=== PATIENT | male | born 1950 | race Caucasian/White ===

== ENCOUNTER → 2018-07-20 10:45 | Outpatient (CLI) | payer MEDICARE, OTHER, SELFPAY ==
[2018-07-20 12:28] LABS: Absolute Lymphocyte Count 1.33 X10^3/ul (0.83-4.51); Basophil# 0.01 X10^3/uL; Basophil% 0.2 % (0-1); Eosinophil# 0.24 X10^3/uL; Eosinophils% 3.9 % (0-5); Hematocrit 41.7 % (40-54); Hemoglobin 14.7 g/dl (13.0-16.5); Lymphocyte # 1.33 X10^3/ul (4.0); Lymphocyte % 21.6 % (19-41); Mean Corp Hgb Conc 35.3 g/gl (32-36); Mean Corpuscular Hgb 31.1 pg (27.0-32.0); Mean Corpuscular Volume 88.3 fL (80-94); Mean Platelet Vol. 11.6 fl (6.2-12.0); Monocyte# 0.54 X10^3/uL; Monocyte% 8.8 % (0-10); Neutrophil # 4.02 X10^3/uL (2.7-7.7); Neutrophil % 65.3 % (47-70); POSITIVE COUNT NO; POSITIVE DIFFERENTIAL NO; POSITIVE MORPHOLOGY NO; Platelet Count 191 K/mm3 (150-450); RBC Distribution Width CV 12.6 % (11.6-14.6); RBC Distribution Width SD 40.4 fl (35.1-43.9); Red Blood Count 4.72 M/mm3 (4.6-6.2); White Blood Count 6.2 K/mm3 (4.4-11.0)
[2018-07-20 12:41] LABS: ALB/GLOB Ratio 1.1 RATIO (0.9-2.4); AST(SGOT) 22 U/L (15-37); Alanine Aminotransfer ALT/SGPT 27 U/L (16-61); Albumin, Serum 3.9 g/dL (3.2-5.0); Alkaline Phosphatase 78 U/L (45-117); Anion Gap 7 (5-15); BUN 23 mg/dL (7-18); Calcium,Total 8.9 mg/dL (8.5-10.1); Chloride 106 mmol/L (98-107); Cholesterol 194 mg/dL (200); Creatinine, Serum 1.53 mg/dL (0.70-1.30); EST Glomerular Filtration Rate 48 mL/min (>60); Est Glom Filt Rate - Afr Amer 58 mL/min (>60); Globulin 3.7 g/dL (2.2-4.2); Glucose 90 mg/dL (74-106); High Density Lipoprotein 59 mg/dL; PSA,Total - Annual Screen 3.79 ng/mL (0.00-4.00); Potassium 4.1 mmol/L (3.5-5.1); Protein, Total 7.6 g/dL (6.4-8.2); Sodium Level 140 mmol/L (136-145); Triglycerides 64 mg/dL; Very Low Density Lipoprotein 13 mg/dL (5-40)
== END ==
PROVIDERS: Family Provider Family Medicine; PCP Family Medicine; Visit Provider Family Medicine
DX: I10 Essential (primary) hypertension (principal); Z12.5 Encounter for screening for malignant neoplasm of prostate; Z00.00 Encounter for general adult medical examination without abnormal findings
CPT/HCPCS: 36415; 80053; 80061; 84153; 85025; G0103

== ENCOUNTER → 2019-08-28 09:01 | Outpatient (CLI) | payer MEDICARE, OTHER, SELFPAY ==
[2019-08-28 10:10] LABS: Absolute Lymphocyte Count 2.03 X10^3/uL (0.83-4.51); Absolute Neutrophil Count 4.9 X10^3/uL (2.0-7.7); Basophil# 0.04 X10^3/uL; Basophil% 0.5 % (0-1); Eosinophil# 0.29 X10^3/uL; Eosinophils% 3.6 % (0-5); Hematocrit 44.6 % (40-54); Hemoglobin 15.3 g/dL (13.0-16.5); Lymphocyte # 2.03 X10^3/ul (4.0); Lymphocyte % 25.1 % (19-41); Mean Corp Hgb Conc 34.3 g/dL (32-36); Mean Corpuscular Hgb 30.8 pg (27.0-32.0); Mean Corpuscular Volume 89.7 fL (80-94); Mean Platelet Vol. 10.6 fl (6.2-12.0); Monocyte% 9.9 % (0-10); NRBC Flagged by Analyzer 0 % (0-5); Neutrophil % 60.7 % (47-70); Platelet Count 208 K/mm3 (150-450); RBC Distribution Width SD 39.3 fl (35.1-43.9); Red Blood Count 4.97 M/mm3 (4.6-6.2); White Blood Count 8.1 K/mm3 (4.4-11.0)
[2019-08-28 10:25] LABS: ALB/GLOB Ratio 1.1 RATIO (0.9-2.4); AST(SGOT) 21 U/L (15-37); Alanine Aminotransfer ALT/SGPT 27 U/L (16-61); Albumin, Serum 3.8 g/dL (3.2-5.0); Alkaline Phosphatase 83 U/L (45-117); Anion Gap 4 (5-15); BUN 24 mg/dL (7-18); BUN/Creat Ratio 14.1 RATIO (10-20); Calcium,Total 8.9 mg/dL (8.5-10.1); Chloride 109 mmol/L (98-107); EST Glomerular Filtration Rate 42 mL/min (>60); Est Glom Filt Rate - Afr Amer 51 mL/min (>60); Globulin 3.6 g/dL (2.2-4.2); Glucose 101 mg/dL (74-106); PSA,Total - Annual Screen 4.34 ng/mL (0.00-4.00); Protein, Total 7.4 g/dL (6.4-8.2); Sodium Level 141 mmol/L (136-145)
== END ==
PROVIDERS: Family Provider Family Medicine; PCP Family Medicine; Referring Provider Family Medicine; Visit Provider Family Medicine
DX: Z00.00 Encounter for general adult medical examination without abnormal findings (principal); I12.9 Hypertensive chronic kidney disease with stage 1 through stage 4 chronic kidney disease, or unspecified chronic kidney disease; N18.3 Chronic kidney disease, stage 3 (moderate); Z12.5 Encounter for screening for malignant neoplasm of prostate
CPT/HCPCS: 36415; 80053; 84153; 85025; G0103

== ENCOUNTER → 2020-11-13 15:35 | Outpatient (CLI) | payer MEDICARE, OTHER, SELFPAY ==
[2020-11-13 17:24] LABS: Absolute Lymphocyte Count 1.56 X10^3/uL (0.83-4.51); Absolute Neutrophil Count 4.7 X10^3/uL (2.0-7.7); Basophil# 0.03 X10^3/uL; Basophil% 0.4 % (0-1); Eosinophil# 0.31 X10^3/uL; Eosinophils% 4.3 % (0-5); Hematocrit 42.8 % (40-54); Hemoglobin 14.2 g/dL (13.0-16.5); Lymphocyte # 1.56 X10^3/ul (4.0); Lymphocyte % 21.6 % (19-41); Mean Corp Hgb Conc 33.2 g/dL (32-36); Mean Corpuscular Hgb 29.8 pg (27.0-32.0); Mean Corpuscular Volume 89.7 fL (80-94); Mean Platelet Vol. 11.8 fl (6.2-12.0); Monocyte# 0.61 X10^3/uL; Monocyte% 8.4 % (0-10); NRBC Flagged by Analyzer 0 % (0-5); Platelet Count 180 K/mm3 (150-450); RBC Distribution Width CV 12.9 % (11.6-14.6); RBC Distribution Width SD 41.8 fl (35.1-43.9); Red Blood Count 4.77 M/mm3 (4.6-6.2); White Blood Count 7.2 K/mm3 (4.4-11.0)
[2020-11-13 18:02] LABS: Anion Gap 6 (5-15); BUN 25 mg/dL (7-18); BUN/Creat Ratio 16.7 RATIO (10-20); Calcium,Total 8.9 mg/dL (8.5-10.1); Chloride 108 mmol/L (98-107); EST Glomerular Filtration Rate 49 mL/min (>60); Est Glom Filt Rate - Afr Amer 59 mL/min (>60); Glucose 87 mg/dL (74-106); PSA,Total - Annual Screen 6.66 ng/mL (0.00-4.00); Sodium Level 139 mmol/L (136-145)
== END ==
PROVIDERS: PCP Family Medicine; Visit Provider Family Medicine
DX: I12.9 Hypertensive chronic kidney disease with stage 1 through stage 4 chronic kidney disease, or unspecified chronic kidney disease (principal); N18.30 Chronic kidney disease, stage 3 unspecified; R97.20 Elevated prostate specific antigen [PSA]
CPT/HCPCS: 36415; 80048; 84153; 85025; G0103

== ENCOUNTER → 2020-12-08 | Outpatient (CLI) | payer MEDICARE, OTHER, SELFPAY ==
[2020-12-08 10:55] LABS: Bacteria 0 SEEN /hpf (None Seen); Mucous, Urine 0 SEEN /hpf (<or=2+)
[2020-12-08 11:01] LABS: Color, Urine Yellow (Yellow); Glucose, Dipstick Normal (Normal); Ketone-Dipstick Negative (Negative); Leukocyte Esterase-Dipstick 25 /ul (Negative); Nitrite-Dipstick Negative (Negative); Occult Blood-Urine 250 /ul (Negative); Protein-Dipstick 30 mg/dl (Negative); Specific Gravity, Urine 1.015 (1.002-1.030); Urine Bilirubin Dipstick Negative (Negative); Urine Clarity Sl. Cloudy (Clear); Urine Urobilinogen Normal (Normal)
[2020-12-08 11:07] LABS: Red Blood Cells-Urine 25-50 SEEN /hpf (0-5); Squamous Epithelial Cells - UA 0-5 SEEN /hpf (0-5); White Blood Cells 0-5 SEEN /hpf (0-5)
== END | disposition home or self-care (01) ==
LOC: LABSPEC 10:50
PROVIDERS: PCP Family Medicine; Referring Provider Nurse Practitioner Adult Health; Visit Provider Nurse Practitioner Adult Health
DX: R31.29 Other microscopic hematuria (principal)
CPT/HCPCS: 81001

== ENCOUNTER → 2020-12-14 13:39 | Outpatient (CLI) | payer MEDICARE, OTHER, SELFPAY ==
--- NOTE | 2020-12-14 13:43 | CT_ITS ---
STUDY: CT ABDOMEN AND PELVIS WITH AND WITHOUT CONTRAST REASON FOR EXAM: Male, 70 years old. BENIGN NEOPLASM OF ADRENAL GLAND, HERNIA REPAIR RADIATION DOSAGE (If Supplied By Facility): CTDIvol = ( 15.74 ) mGy, DLP = ( 1933.36 ) mGycm TECHNIQUE: Transaxial images were obtained from the dome of the diaphragm to the symphysis pubis without oral contrast. IV 100mL Isovue-370 was administered. Sagittal and coronal images were reconstructed. Individualized dose optimization techniques were used for this CT. COMPARISON: None. FINDINGS: The visualized lung bases are unremarkable. The visualized portions of the heart are within normal limits. There is a 2.3 cm x 2.2 cm cyst in the left lobe of the thyroid. Normal gallbladder and extrahepatic biliary system. Normal spleen. Normal pancreas. Normal bilateral adrenal glands. There is mild cortical atrophy of the right kidney, consistent with chronic medical renal disease. There is a 5.2 mm nonobstructive calculus in the lower pole calyx of the right kidney. There is a 1.3 cm cyst in the posterior inferior aspect of the right kidney. There is hypertrophy of the left kidney. There is a 6 mm nonobstructive calculus in the mid lower aspect of the left kidney. There is a 3.3 cm x 1.9 cm parapelvic cyst in the midportion of left kidney. There is also evidence of a 2.2 cm cyst in the midportion of Normal visualized stomach. Normal small intestine. There are multiple colonic diverticula consistent with diverticulosis. The appendix is visualized and appears normal. Normal abdominal aorta. Normal inferior vena cava. There is borderline retroperitoneal lymphadenopathy with enlarged nodes no greater than 10mm in the short axis diameter. There is a 3.1 cm x 1.7 cm bladder diverticulum along the left side of the bladder. There is evidence of bladder trabeculation of the bladder base. There is enlargement of the prostate gland. It measures 4.9 cm x 5.6 cm. Dense calcifications are seen in its right lateral aspect. There is indentation at the bladder base. Normal abdominal wall. There are degenerative changes of the visualized lumbar spine. CT/CT Abd/Pelvis W/WO Contrast IMPRESSION: Mild atrophy of the right kidney. Small bilateral intrarenal cysts. Nonobstructive bilateral intrarenal calculi. Prostatic enlargement with the heterogeneous appearance and calcification and indentation of the bladder base. Left bladder diverticulum. Electronically Signed: Joe Gimenez MD at 15:00 EST , Service support ,
== END ==
PROVIDERS: PCP Family Medicine; Referring Provider Nurse Practitioner Adult Health; Visit Provider Nurse Practitioner Adult Health
DX: D35.00 Benign neoplasm of unspecified adrenal gland (principal)
CPT/HCPCS: 74178; Q9967

== ENCOUNTER 2021-01-08 08:10 | Day surgery (SDC) | payer MEDICARE, OTHER, SELFPAY ==
--- NOTE | 2021-01-04 12:23 | EKG12_ITS ---
Test Reason : PRE OP Blood Pressure : / mmHG Vent. Rate : 074 BPM Atrial Rate : 074 BPM P-R Int : 200 ms QRS Dur : 082 ms QT Int : 372 ms P-R-T Axes : 058 036 000 degrees QTc Int : 412 ms Sinus rhythm with occasional Premature ventricular complexes and Premature atrial complexes Otherwise normal ECG Confirmed by SALVADOR BARBOUR, SWAPNA ([id number]), medical editor CHANO GARNER ([id number]) on 01/05/2021 8:14:40 AM Referred By: Bradley Ashraf Confirmed By:SWAPNA FRANCO MD
[2021-01-04 12:53] LABS: Hematocrit 42.9 % (40-54); Hemoglobin 14.5 g/dL (13.0-16.5); Mean Corp Hgb Conc 33.8 g/dL (32-36); Mean Corpuscular Hgb 30.3 pg (27.0-32.0); Mean Corpuscular Volume 89.7 fL (80-94); Mean Platelet Vol. 10.4 fl (6.2-12.0); Platelet Count 220 K/mm3 (150-450); RBC Distribution Width CV 13.1 % (11.6-14.6); RBC Distribution Width SD 43.6 fl (35.1-43.9); Red Blood Count 4.78 M/mm3 (4.6-6.2); White Blood Count 8.4 K/mm3 (4.4-11.0)
[2021-01-08] VITALS (11 sets, daily range): BP systolic 148–178; BP diastolic 86–102; PULSE 53–75; RESP 16–18; TEMP 36.2–37.2; O2SAT 94–99; BMI 29.0
--- NOTE | 2021-01-08 | IMM_PTH ---
PATIENT: ANATOLY SUAREZ LOC: [facility] [place] U#:[id number] AGE/SX: 70/M ROOM: RE01/08/[address]: Dr. Bradley Ashraf MD : 1950 BED: DIS: 01/09/2021 SPEC #: [id number] RECD: 01/11/21 14:32 STATUS: ISIDRA REQ #: [id number] SUSIE: 01/08/21 00:[address]: Bradley Ashraf DEPT: IMMUNOHISTOCHEMISTRY RECD BY: Anusha Theodore ENTERED: 01/11/21 14:34 SP TYPE: IMMUNO OTHR DR: Dr. Amelia Cabrera MD Tissues: A - PROSTATE BIOPSY C - PROSTATE LEFT Procedures: 34BE12 (add) P40 (add) 34BE12 (initial) PHYSICIAN & INSTITUTION [place] [phone] SPECIMEN INFORMATION: Tissue Source: A - Prostate chips, C - Left prostate, punch biopsy Clinical Info: BPH with obstruction/lower urinary tract symptoms, elevated PSA, bladder stone Specimen Number: [id number] A2, A4, A6, A9, C CPT code: 36472 x2, 97133 x8 METHODOLOGY: Deparaffinized sections of prefer/formalin-fixed tissue or PAP/DQ stained slides are incubated with monoclonal/polyclonal antibodies/oligonucleotide probes. Localization is made via biotin free immunoperoxidase method. Appropriate controls are performed and reacted as expected. Results on target cell population are indicated in the following table: RESULTS: ANTIBODY / CLONE RESULT Block A2 34BE12 (34BE12) negative P40 (BC28) negative Block A4 34BE12 (34BE12) negative P40 (BC28) negative Block A6 34BE12 (34BE12) negative P40 (BC28) negative Block A9 34BE12 (34BE12) negative P40 (BC28) negative Block C 34BE12 (34BE12) negative P40 (BC28) negative These tests were developed and their performance characteristics determined by [facility]. They may not have been cleared or approved by the U.S. Food and Drug Administration. The FDA has determined that such clearance or approval is not necessary. The above immunohistochemical/dualISH markers are ordered and reviewed by the Pathologist. INTERPRETATION: A. Prostate chips, transurethral resection: Adenocarcinoma. C. Left prostate, punch biopsy: Adenocarcinoma. AM:joan 01/13/2021
[2021-01-08] MEDS: Lactated Ringers 1,000 ML 100 ML IV ×2 (08:55→10:30)
--- NOTE | 2021-01-08 09:46 | PCM.HP.STD ---
Problem List (1) Bladder stone Status: Acute (2) BPH with obstruction/lower urinary tract symptoms Status: Acute (3) Elevated PSA Status: Acute History of Present Illness Date of Admission: 01/08/21 Chief Complaint: BPH with obstruction bladder stone and elevated PSA The patient is a 70 year old male who presents with a large bladder stone, BPH with obstruction and elevated PSA we plan to address these issues today. Past Medical History Allergies Penicillins [PCN] Allergy (Verified 01/08/21 08:28) Rash Home Medications: Ambulatory Orders Medication Instructions Recorded Amlodipine [Norvasc] 10 mg PO QHS 01/01/21 Multivitamin 1 ea PO DAILY 01/01/21 Surgical History: no surgical history Smoking Status: Former smoker Review of Systems Constitutional: Denies: Chills, Fever, Weight Change HEENT: Denies: Head Aches, Sinus Congestion, Sinus Drainage Cardiovascular: Denies: Chest Pain, Palpitations Respiratory: Denies: Cough, Shortness of breath at rest, Sputum production Gastrointestinal: Denies: Abdominal Pain, Nausea, Vomiting Genitourinary: Denies: Dysuria Musculoskeletal: Denies: Joint Pain, Joint Tenderness Skin: Denies: Rash, Wounds Neurological: Denies: Numbness, Tingling, Focal weakness Psychiatric: Denies: Anxiety, Depression, Homicidal Ideations, Suicidal Ideations Hematologic/ Lymphatic: Denies: Easy Bruising, Easy Bleeding VTE Information - Inpt Only VTE Present on Admission: No - Physical Exam Vitals/I&O's: Vital Signs Temp Pulse Resp BP Pulse Ox 98.6 F 62 16 157/91 H 98 01/08/21 08:49 01/08/21 08:49 01/08/21 08:49 01/08/21 08:49 01/08/21 08:49 Oxygen Delivery Method Room Air Weight: 86.5 kg Body Mass Index (BMI) 29.0 General: Alert, Oriented x3, Cooperative HEENT: Atraumatic, PERRLA, EOMI, Normocephalic Neck: Supple, No JVD, Negative Carotid Bruits Lungs: Clear to auscultation, Normal air movement Cardiovascular: Regular rate, No murmurs Abdomen: Bowel Sounds Present, Soft, Non Tender Extremities: No edema, Capillary Refill Less than 3 Seconds Skin: No rashes, No breakdown Musculoskeletal: No Tenderness to Palpation of Joints or Extremities Neurological: Cranial nerves II-XII grossly intact Psych/Mental Status: Normal Affect, Appropriate Microbiology Past 72 Hours 01/07/21 11:30 Interface Orders SARS-CoV-2 Antigen (Rapid) - Final Current Medications Cefazolin Sodium 2 gm/ Sodium (Chloride) 110 mls @ 150 mls/hr IV PREOP ONE Stop: 01/08/21 10:43 Lactated Ringer's () 1,000 mls @ 100 mls/hr IV .Q10H WOLF Last Admin: 01/08/21 08:55 Dose: 100 mls/hr Documented by: Assessment/Plan All Active Problems Bladder stone (Acute) BPH with obstruction/lower urinary tract symptoms (Acute) Elevated PSA (Acute) Plan to proceed with laser bladder stone, transurethral section of the prostate, and then finger guided prostate biopsy.
--- NOTE | 2021-01-08 09:52 | DCINST_ITS ---
Discharge Diet: Light diet - advance as tolerated Discharge Activity: Return to Normal Activity Call your doctor if your incision/area has: Sudden Increased Bleeding Call your doctor if you observe: Fever of 101 or Higher Suture Line Care: Avoid Pulling/Pushing, Avoid Pinching/Bending Allergies/Adverse Reactions: Allergies Penicillins [PCN] Allergy (Verified 01/08/21 08:28) Rash Medications to take at Discharge Amlodipine [Norvasc] 10 mg PO QHS 01/01/21 Multivitamin 1 ea PO DAILY 01/01/21 Ciprofloxacin [Cipro] 500 mg PO BID #6 tab 01/08/21 Hydrocodone Bitart/Apap 5-325 [[place] 5MG-325MG] 1 tablet PO Q4H PRN PRN 7 Days #10 tablet 01/08/21 The following prescriptions were given: Ciprofloxacin [Cipro] 500 mg PO BID #6 tab Transmission Status: Pending to [facility] Hydrocodone Bitart/Apap 5-325 [[place] 5MG-325MG] 1 tablet PO Q4H PRN PRN 7 Days #10 tablet PRN Reason: Pain Transmission Status: Sent to [facility] Primary Care Physician: Amelia Cabrera MD [Primary Care Provider] - Test Results: Test results from this visit will be discussed in further detail at your follow- up appointment, if applicable. Please Follow Up With: Bradley Ashraf MD - [phone] When: in 2 weeks, please call to make an appointment.
[2021-01-08] MEDS: Cefazolin 2 GM in 0.9% Normal Saline 100 ML IV (10:04)
--- NOTE | 2021-01-08 10:10 | PROS_PTH ---
PATIENT: ANATOLY SUAREZ LOC: [facility] [place] U#:[id number] AGE/SX: 70/M ROOM: RE01/08/[address]: Dr. Bradley Ashraf MD : 1950 BED: DIS: 01/09/2021 SPEC #: [id number] RECD: 01/08/21 12:56 STATUS: ISIDRA REMarly #: [id number] SUSIE: 01/08/21 10:[address]: Bradley Ashraf DEPT: SURGICAL PATHOLOGY RECD BY: Sophie Kearns ENTERED: 01/08/21 13:18 SP TYPE: TURP OTHR DR: Dr. Amelia Cabrera MD Tissues: A - Prostate, NOS B - PROSTATE BIOPSY C - PROSTATE BIOPSY Procedures: Surgery Specimen Level IV HEADER OPERATION: Cysto, TUR prostate, Olympus/transrectal biopsy prostate PRE-OP DIAGNOSIS: Bladder stone, BPH with obstruction/lower urinary tract symptoms, elevated PSA TISSUE SUBMITTED: A - Bladder stone and prostate chips, B - Biopsy punch of prostate - right, C - Biopsy punch of prostate - left MICROSCOPIC DIAGNOSIS A. Prostate, transurethral resection: Adenocarcinoma. Unremarkable calculi. See cancer checklist below. B. Right prostate, core biopsy: Chronic inflammation and glandular atrophy. C. Left prostate, core biopsy: Adenocarcinoma. Edwin grade: 6 (3+3) Cores involved: 1 out of 4 Tissue involved: 10% Greatest tumor length: 2.2 mm See comment. AM:joan 01/13/2021 COMMENT A. Immunohistochemistry ([id number]) supports the above diagnosis. C. Immunohistochemistry ([id number]) supports the above diagnosis. PROSTATE CANCER (TUR) SUMMARY: Procedure: TURP Histologic type: Adenocarcinoma Histologic grade: 6 (3+3) Percent of pattern 4: 0% Percent of pattern 5: 0% Intraductal carcinoma: Not identified Estimated percent of tissue involved: 5% Periprostatic fat invasion: Not applicable. No fat present. Seminal vesicle invasion: No seminal vesicles present. Lymphvascular invasion: Not identified Perineural invasion: Not identified Treatment effect: Unknown Additional pathologic findings: Benign nodular hyperplasia, glandular and stromal types and mild chronic inflammation. The above summary is in compliance with [employer] (CAP) Cancer Protocols Checklist and [place] Joint Committee on Cancer (AJCC), Staging Manual, 8th Ed. Case has been reviewed in consultation with Dr. Bledsoe who concurs with the above diagnosis. IDC:SJ MICROSCOPIC DESCRIPTION Slides are reviewed. GROSS DESCRIPTION A - Received is one container labeled with the patient's name and designated bladder stone and prostate chips. The specimen consists of multiple irregular fragments of pink-pack, rubbery, soft tissue mixed with multiple brown stone that in aggregate weigh 9.4 gm and measure in aggregate 6 x 5 x 1.5 cm. The entire soft tissue is submitted in nine cassettes. Bladder stones are for gross identification only. B - Received in fixative is one container labeled with the patient's name and designated biopsy punch of prostate right. The specimen consists of two elongated fragments of pack soft tissue measuring 1.2 and 1.8 cm in length and 0.1 cm in diameter. Also present in the container are multiple fragments of pack soft tissue measuring 0.1 to 0.2 cm in greatest dimension and measuring in aggregate 0.5 x 0.5 x 0.1 cm. The entire specimen is submitted in one cassette. C - Received in fixative is one container labeled with the patient's name and designated biopsy punch of prostate left. The specimen consists of four elongated fragments of pack soft tissue measuring 0.6 to 1.5 cm in length and 0.1 cm in diameter. The entire specimen is submitted in one cassette. / SJ:joan 01/08/21 TC:0 [facility]: [id number] x3
--- NOTE | 2021-01-08 11:19 | PCM.OPRPT ---
Problem List (1) Bladder stone Status: Acute (2) BPH with obstruction/lower urinary tract symptoms Status: Acute (3) Elevated PSA Status: Acute Report of Operation Date of Procedure: 01/08/21 Pre-Operative Diagnosis: Large bladder stone multiple, BPH with obstruction, elevated PSA Post-Operative Diagnosis: Same Surgery/Procedure Performed:: Cystoscopy, transurethral resection of the prostate, punch biopsy of the prostate, laser lithotripsy of bladder stone Description of Surgical Findings:: In the preoperative setting I discussed with the patient how the surgery would be done with expect afterwards. We discussed how a prostate resection is done and we discussed the risk of the surgery including, bleeding, infection, retrograde ejaculation, changes with ejaculation or intercourse,. We discussed the possibility that the resection of the prostate may not alleviate his urinary symptoms. We discussed the small risk of developing scar tissue along the urethral channel and strictures. We also discussed the chance of the prostate could grow back and he may need further surgery or treatment in the future for prostate problems. Patient was taken back to the operating room after smooth induction of general anesthesia. The urethra and genitals were prepped and draped in usual sterile fashion. Went into the bladder using a 24 Vincentian cystoscope. We used the laser bridge through the scope for continuous irrigation. Then using the laser bridge we introduced a laser fiber into the bladder and the stone in the bladder was trapped against the back wall. The stone measured 3cm in size. The stone was then lasered using laser lithotripsy the small little pieces all the pieces were evacuated on the bladder. After all the stones were removed then the scope was removed there was minimal bleeding. He was placed in dorsolithotomy position. Penis and testicles were prepped and draped in usual sterile fashion. Went into the bladder using the visual obturator with a resectoscope. Once inside the bladder identified the right and left ureteral orifice. I then identified the prostate and the anatomy of the prostate. I marked out the area of the sphincter and the verumontanum was identified. I then proceeded with the prostate resection first resected the median lobe. And then resected the right lobe of the prostate. Then to resect the left lobe of the prostate. I then resected the apical tissue of the prostate. Made sure that there was no injury to the sphincter or the verumontanum was still intact. At the end of the resection all the chips were Ellik out of the bladder. I then identified the left and right ureteral orifice and these were confirmed to be in good position and effluxing and not injured. The resectoscope was removed, a 22 Vincentian catheter was placed into the bladder on continuous irrigation. And the urine was fairly light pink color and draining normally. A double gloved was placed into the prostate on examination prostate right side of the prostate was examined and then a biopsy needle was guided to the double gloved and finger guided biopsy was performed of the prostate. Biopsies were taken of the left prostate and the right prostate and these were sent off a separate specimen.e was taken back to the PACU in good condition. Type of Anesthesia:: General Drains: 22fr 3 way - Admit VTE Documentation VTE Present on Admission: No VTE Mechan Device Prophylaxis: SCD's
[2021-01-08] MEDS: 0.9% Normal Saline 1,000 ML 75 ML IV (15:33)
[2021-01-08] MEDS: amLODIPine 10 MG Tablet PO (15:33)
--- NOTE | 2021-01-08 17:14 | NURSING ---
reviewed and agree with documentation by KIMANI Clayton
[2021-01-08] MEDS: Ciprofloxacin 400 MG/200 ML BAG 200 MG IV (21:14)
[2021-01-08] MEDS: Docusate Sodium 100 MG Capsule PO (21:14)
[2021-01-09 01:24] VITALS: BMI 29.0
[2021-01-09 02:55] VITALS: BP 140/83; PULSE 69; RESP 16; TEMP 37.2; O2SAT 96
[2021-01-09 05:30] VITALS: BMI 29.0
[2021-01-09] MEDS: 0.9% Normal Saline 1,000 ML 75 ML IV (05:39)
[2021-01-09 09:19] VITALS: BMI 29.0
[2021-01-09] MEDS: Ciprofloxacin 400 MG/200 ML BAG 200 MG IV (09:30)
[2021-01-09] MEDS: Multivitamins,Therapeutic Tablet 1 TABLET PO (09:30)
[2021-01-09] MEDS: Pantoprazole Sodium 40 MG Tablet PO (09:30)
[2021-01-09] MEDS: Docusate Sodium 100 MG Capsule PO (09:30)
[2021-01-09 10:49] VITALS: BP 151/97; PULSE 70; RESP 16; TEMP 36.4; O2SAT 97
== END 2021-01-09 10:57 | disposition home or self-care (01) ==
LOC: SDC 08:10 → AC 08:11 → MS3 13:14
PROVIDERS: Anesthesiology; PCP Family Medicine; Referring Provider Urology; Visit Provider Urology
PROC: (CPT 52318; principal; 2021-01-08 10:00)
PROC: (CPT 52318; 2021-01-08 10:00)
DX: N40.1 Benign prostatic hyperplasia with lower urinary tract symptoms (principal); N21.0 Calculus in bladder; N13.8 Other obstructive and reflux uropathy; R35.0 Frequency of micturition; R35.1 Nocturia; R39.12 Poor urinary stream; R97.20 Elevated prostate specific antigen [PSA]; Z20.822 Contact with and (suspected) exposure to COVID-19; I12.9 Hypertensive chronic kidney disease with stage 1 through stage 4 chronic kidney disease, or unspecified chronic kidney disease; N18.30 Chronic kidney disease, stage 3 unspecified; G47.30 Sleep apnea, unspecified; Z87.891 Personal history of nicotine dependence
CPT/HCPCS: 00914; 52318; 52601; 55700; 36415; 85027; 87426; 88305; 88341; 88342; 93005; C9803; J7030; J7120; J0744; J2405

== ENCOUNTER → 2021-04-15 14:37 | Outpatient (CLI) | payer MEDICARE, OTHER, SELFPAY ==
[2021-01-08 08:49] VITALS: BMI 29.0
[2021-04-15 16:20] LABS: PSA,Total- Diagnostic 1.49 ng/mL (0.0-4.0)
== END ==
PROVIDERS: PCP Family Medicine; Visit Provider Nurse Practitioner Adult Health
DX: C61 Malignant neoplasm of prostate (principal)
CPT/HCPCS: 36415; 84153

== ENCOUNTER → 2022-04-13 | Outpatient (CLI) | payer MEDICARE, OTHER, SELFPAY ==
[2022-04-13 14:56] LABS: PSA,Total- Diagnostic 2.28 ng/mL (0.0-4.0)
== END | disposition home or self-care (01) ==
LOC: LAB 13:53
PROVIDERS: PCP Family Medicine; Visit Provider Urology
DX: C61 Malignant neoplasm of prostate (principal)
CPT/HCPCS: 36415; 84153

== ENCOUNTER 2022-09-19 07:27 | Day surgery (SDC) | payer MEDICARE, OTHER, SELFPAY ==
[2022-09-19] MEDS: Lactated Ringers 1,000 ML 15 ML IV (07:40)
[2022-09-19 07:50] VITALS: BP 141/96; PULSE 64; RESP 17; TEMP 36.4; O2SAT 96; BMI 28.5
--- NOTE | 2022-09-19 08:34 | HP.PCM_ITS ---
HPI - General General Date of Admission: 09/19/22 Date of Service: 09/19/22 Chief Complaint: Screening colonoscopy HPI Narrative ANATOLY SUAREZ, is a 72 M who presents today for screening colonoscopy. He has a past medical history of BPH, prostate cancer who arrives here today for screening colonoscopy. He also has a past medical history of hypertension which is controlled on medications. He has not had any abdominal pain. He is not solano ving nausea. Does not have any chest pain or shortness of breath. He denies any weakness. Denies any bloating, lower GI bleeding or change in bowels. All other 16 review of systems are negative except as per pause mentioned HPI. [facility] Medical History Cancer CRD (chronic renal disease), stage III Former smoker HTN (hypertension) Wears hearing aid Home Medications amlodipine 10 mg tablet 10 mg PO QHS HTN 01/01/21 [History Last Taken Unknown] multivitamin 1 ea PO DAILY 01/01/21 [History Last Taken Unknown] losartan 25 mg tablet 25 mg PO DAILY 08/11/22 [History Last Taken Unknown] Allergy/AdvReac Type Severity Reaction Status Date / Time Penicillins [PCN] Allergy Rash Verified 09/19/22 07:50 Family History (Updated 08/11/22 @ 13:15 by Tabitha Mckay) Father Hypertension Lung cancer Surgical History History of colonoscopy History of inguinal hernia repair History of transurethral resection of prostate Hx of artificial lens replacement Social History (Updated 08/11/22 @ 13:15 by Tabitha Mckay) household members: spouse Smoking Status: Former smoker ROS Review of Systems ROS Unobtainable: other Constitutional Constitutional: Denies fatigue, fever(s), poor appetite, weight gain or weight loss ENT HEENT: Denies mouth lesions Cardiovascular Cardiovascular: Denies abdominal bloating, abdominal edema or abdominal pain Respiratory/Chest Respiratory/Chest: Denies change in mental status, change in phlegm color, chest congestion or chest tightness Gastrointestinal Gastrointestinal: Denies belching, bloating, change in bowel habits, change in stool character, chewing difficulty, coffee ground emesis, constipation, cramping, diarrhea, dyspepsia, dysphagia, early satiety, excessive flatus, fecal incontinence, heartburn, hematemesis, hematochezia, hemorrhoids, loose stools, melena, nausea, odynophagia, rectal bleeding, tenesmus, vomiting or weight changes Genitourinary Genitourinary: Denies abdominal discomfort, burning urination or itching Musculoskeletal Musculoskeletal: Reports as per HPI; Denies muscle weakness or myalgias Integumentary Integumentary: Denies jaundice Neurologic Neurologic: Denies lack of coordination or weakness Psychiatric Psychiatric: Denies confusion, depression, memory loss, mood swings, paranoia or suicidal ideation Endocrine Endocrinology: Denies systems reviewed and no addt'l complaints, except as documented Hematologic/Lymphatic Hematologic/Lymphatic: Denies anemia, easy bleeding, easy bruising or lymphadenopathy Allergic/Immunologic Allergic/Immunologic: Denies systems reviewed and no addt'l complaints, except as documented Vital Signs Vital Signs Vital Signs: 09/19/22 07:50 09/19/22 07:50 Temperature 97.6 F L Temperature Source Temporal Pulse Rate 64 Respiratory Rate 17 Respiratory Pattern Normal Blood Pressure 141/96 H Blood Pressure Mean 111 Blood Pressure Source Monitor Blood Pressure Position Semi-Fowlers Blood Pressure Location Left Arm Pulse Ox 96 Oxygen Delivery Method Room Air Weight Weight: 187 lb 6.287 oz Body Mass Index (BMI) 28.5 Physical Exam Const alert General Appearance: cooperative Orientation / Consciousness: oriented to person HEENT hearing grossly normal bilaterally Head and Scalp: normal to inspection Face and Sinus: face symmetric Nose: external nose normal Mouth: oral and palatal mucosa normal Eyes conjunctivae normal General Eye: normal appearance of both eyes Neck full ROM General: normal visual inspection Lymph Lymphatic: no lymphadenopathy noted Chest inspection of chest normal and palpation of chest normal Chest: symmetrical chest wall rise Resp normal respiratory effort Effort and Inspection: able to speak in complete sentences Cardio regular rate GI non-distended Percussion: normal to percussion Rectal Exam: deferred Neuro Speech: speech normal Gait (Neuro): normal gait Assessment & Plan Assessment/Plan (1) Encounter for screening for malignant neoplasm of colon: PLAN: He was explained alternatives, risk, benefits including but not withstanding bleeding, infection, sepsis, perforation, need for emergent surgery . He will have an ASA of 1.
[2022-09-19 09:07] VITALS: BP 125/80; BP 141/96; PULSE 61; RESP 16; TEMP 36.5; O2SAT 97
--- NOTE | 2022-09-19 09:10 | OP.COLON_ITS ---
Patient Name: Jasper Aguillon Procedure Date: 09/19/2022 8:40 AM Date of : 1950 Age: 72 Procedure: Colonoscopy Indications: Screening for colorectal malignant neoplasm Providers: Jefry Ugarte DO Medicines: Monitored Anesthesia Care Patient Profile: This is a 72 year old male. Refer to note in patient chart for documentation of history and physical. Last Colonoscopy: 10 years ago. Complications: No immediate complications. Procedure: Pre-Anesthesia Assessment: - Prior to the procedure, a History and Physical was performed, and patient medications and allergies were reviewed. The patient is competent. The risks and benefits of the procedure and the sedation options and risks were discussed with the patient. All questions were answered and informed consent was obtained. Patient identification and proposed procedure were verified by the physician in the pre-procedure area. Mental Status Examination: alert and oriented. Airway Examination: normal oropharyngeal airway and neck mobility. Respiratory Examination: clear to auscultation. CV Examination: normal. Prophylactic Antibiotics: The patient does not require prophylactic antibiotics. Prior Anticoagulants: The patient has taken no previous anticoagulant or antiplatelet agents. ASA Grade Assessment: II - A patient with mild systemic disease. After reviewing the risks and benefits, the patient was deemed in satisfactory condition to undergo the procedure. The anesthesia plan was to use monitored anesthesia care (MAC). Immediately prior to administration of medications, the patient was re-assessed for adequacy to receive sedatives. The heart rate, respiratory rate, oxygen saturations, blood pressure, adequacy of pulmonary ventilation, and response to care were monitored throughout the procedure. The physical status of the patient was re-assessed after the procedure. After I obtained informed consent, the scope was passed under direct vision. Throughout the procedure, the patient's blood pressure, pulse, and oxygen saturations were monitored continuously. The pediatric colonoscope was introduced through the anus and advanced to the cecum, identified by the appendiceal orifice, ileocecal valve and palpation. The colonoscopy was performed without difficulty. The patient tolerated the procedure well. The quality of the bowel preparation was good. Scope In: 8:47:16 AM Scope Withdrawal Time 0 hours 6 minutes 28 seconds Scope Out: 9:04:10 AM Total Procedure Duration Time 0 hours 16 minutes 54 seconds Findings: The perianal and digital rectal examinations were normal. Two small-mouthed diverticula were found in the sigmoid colon. The exam was otherwise without abnormality on direct and retroflexion views. Impression: - Diverticulosis in the sigmoid colon. - The examination was otherwise normal on direct and retroflexion views. - No specimens collected. Recommendation: - Discharge patient to home. - Resume previous diet. - Continue present medications. - Repeat colonoscopy in 10 years for screening purposes. Procedure Code(s): --- Professional --- G0121, Colorectal cancer screening; colonoscopy on individual not meeting criteria for high risk CPT copyright 2017 [employer]. All rights reserved. The codes documented in this report are preliminary and upon braille coder review may be revised to meet current compliance requirements. Jefry Ugarte DO 09/19/2022 9:10:27 AM This report has been signed electronically. Number of Addenda: 0 Note Initiated On: 09/19/2022 8:40 AM
[2022-09-19 09:11] VITALS: BP 122/81; BP 141/96; PULSE 62; RESP 16; O2SAT 97
--- NOTE | 2022-09-19 09:12 | OP.CCLET_ITS ---
09/19/2022 Amelia Cabrera [place] [id number] [address] Re : Colonoscopy procedure for Jasper Aguillon Dear Dr. Cabrera This procedure was performed on Monday, September 19, 2022. My impressions and recommendations are as follows: Impressions : - Diverticulosis in the sigmoid colon. - The examination was otherwise normal on direct and retroflexion views. - No specimens collected. Recommendations : - Discharge patient to home. - Resume previous diet. - Continue present medications. - Repeat colonoscopy in 10 years for screening purposes. My findings are described in the full procedure note, which is enclosed. If I can be of further assistance, please feel free to contact me at . Sincerely, Jefry Ugarte, 09/19/2022 9:10:27 AM This report has been signed electronically.
[2022-09-19 09:16] VITALS: BP 123/82; BP 141/96; PULSE 72; RESP 16; O2SAT 98
[2022-09-19 09:21] VITALS: BP 123/80; BP 141/96; PULSE 71; RESP 16; TEMP 36.4; O2SAT 98
[2022-09-19 09:36] VITALS: BP 141/96
== END 2022-09-19 09:45 | disposition home or self-care (01) ==
LOC: EN 07:27 → AC 07:28
PROVIDERS: PCP Family Medicine; Referring Provider Family Medicine; Visit Provider Internal Medicine Gastroenterology
PROC: 0DJD8ZZ Inspection of Lower Intestinal Tract, Via Natural or Artificial Opening Endoscopic (ICD-10-PCS; CPT 45378; principal; 2022-09-19 08:25)
DX: Z12.11 Encounter for screening for malignant neoplasm of colon (principal); N18.30 Chronic kidney disease, stage 3 unspecified; K57.30 Diverticulosis of large intestine without perforation or abscess without bleeding; I12.9 Hypertensive chronic kidney disease with stage 1 through stage 4 chronic kidney disease, or unspecified chronic kidney disease; Z79.899 Other long term (current) drug therapy; Z87.891 Personal history of nicotine dependence; Z85.46 Personal history of malignant neoplasm of prostate
CPT/HCPCS: G0121; J7120; J2405

== ENCOUNTER → 2022-12-20 | Outpatient (CLI) | payer MEDICARE, OTHER, SELFPAY ==
[2022-12-20 12:28] LABS: Absolute Lymphocyte Count 1.81 X10^3/uL (0.83-4.51); Absolute Neutrophil Count 4.9 X10^3/uL (2.0-7.7); Basophil# 0.04 X10^3/uL; Basophil% 0.5 % (0-1); Eosinophil# 0.27 X10^3/uL; Eosinophils% 3.5 % (0-5); Hematocrit 44.1 % (40-54); Hemoglobin 15.1 g/dL (13.0-16.5); Lymphocyte # 1.81 X10^3/ul (0.83-4.51); Lymphocyte % 23.5 % (19-41); Mean Corp Hgb Conc 34.2 g/dL (32-36); Mean Corpuscular Hgb 30.5 pg (27.0-32.0); Mean Corpuscular Volume 89.1 fL (80-94); Mean Platelet Vol. 11.1 fl (6.2-12.0); Monocyte# 0.72 X10^3/uL; Monocyte% 9.3 % (0-10); NRBC Flagged by Analyzer 0 % (0-5); Neutrophil # 4.85 X10^3/uL (2.7-7.7); Neutrophil % 62.9 % (47-70); Platelet Count 214 K/mm3 (150-450); RBC Distribution Width CV 12.2 % (11.6-14.6); Red Blood Count 4.95 M/mm3 (4.6-6.2); White Blood Count 7.7 K/mm3 (4.4-11.0)
[2022-12-20 12:56] LABS: ALB/GLOB Ratio 1.1 RATIO (0.9-2.4); AST(SGOT) 21 U/L (15-37); Alanine Aminotransfer ALT/SGPT 25 U/L (16-61); Albumin, Serum 3.9 g/dL (3.2-5.0); Alkaline Phosphatase 79 U/L (45-117); Anion Gap 6 (5-15); BUN 25 mg/dL (7-18); BUN/Creat Ratio 16.4 RATIO (10-20); Calcium,Total 9.4 mg/dL (8.5-10.1); Chloride 107 mmol/L (98-107); Cholesterol 220 mg/dL (200); Creatinine, Serum 1.52 mg/dL (0.70-1.30); EST Glomerular Filtration Rate 48 mL/min (>60); Est Glom Filt Rate - Afr Amer 58 mL/min (>60); Globulin 3.4 g/dL (2.2-4.2); Glucose 101 mg/dL (74-106); High Density Lipoprotein 56 mg/dL; Potassium 4.5 mmol/L (3.5-5.1); Protein, Total 7.3 g/dL (6.4-8.2); Sodium Level 140 mmol/L (136-145); Triglycerides 99 mg/dL; Very Low Density Lipoprotein 20 mg/dL (5-40)
== END | disposition home or self-care (01) ==
LOC: BFHLAB 09:48
PROVIDERS: PCP Family Medicine; Visit Provider Family Medicine
DX: Z00.00 Encounter for general adult medical examination without abnormal findings (principal); N18.30 Chronic kidney disease, stage 3 unspecified; I12.9 Hypertensive chronic kidney disease with stage 1 through stage 4 chronic kidney disease, or unspecified chronic kidney disease
CPT/HCPCS: 36415; 80053; 80061; 85025

== ENCOUNTER → 2023-04-17 | Outpatient (CLI) | payer MEDICARE, OTHER, SELFPAY ==
[2023-04-17 12:12] LABS: PSA,Total- Diagnostic 2.53 ng/mL (0.0-4.0)
== END | disposition home or self-care (01) ==
PROVIDERS: PCP Family Medicine; Referring Provider Urology; Visit Provider Urology
DX: C61 Malignant neoplasm of prostate (principal)
CPT/HCPCS: 36415; 84153

== ENCOUNTER → 2024-03-01 | Outpatient (CLI) | payer MEDICARE, OTHER, SELFPAY ==
[2024-03-01 10:46] LABS: Absolute Neutrophil Count 5.4 X10^3/uL (2.0-7.7); Basophil# 0.04 X10^3/uL; Basophil% 0.6 % (0-1); Eosinophil# 0.15 X10^3/uL; Eosinophils% 2.1 % (0-5); Hemoglobin 14.7 g/dL (13.0-16.5); Lymphocyte % 13.8 % (19-41); Mean Corp Hgb Conc 33.4 g/dL (32-36); Mean Corpuscular Hgb 29.8 pg (27.0-32.0); Mean Corpuscular Volume 89.1 fL (80-94); Mean Platelet Vol. 11.6 fl (6.2-12.0); Monocyte# 0.62 X10^3/uL; Monocyte% 8.5 % (0-10); NRBC Flagged by Analyzer 0 % (0-5); Neutrophil # 5.41 X10^3/uL (2.7-7.7); Neutrophil % 74.4 % (47-70); Platelet Count 193 K/mm3 (150-450); RBC Distribution Width CV 12.7 % (11.6-14.6); RBC Distribution Width SD 41.4 fl (35.1-43.9); Red Blood Count 4.94 M/mm3 (4.6-6.2); White Blood Count 7.3 K/mm3 (4.4-11.0)
[2024-03-01 11:30] LABS: ALB/GLOB Ratio 1.1 RATIO (0.9-2.4); AST(SGOT) 20 U/L (15-37); Alanine Aminotransfer ALT/SGPT 26 U/L (16-61); Albumin, Serum 3.8 g/dL (3.2-5.0); Alkaline Phosphatase 75 U/L (45-117); Anion Gap 7 (5-15); BUN 20 mg/dL (7-18); BUN/Creat Ratio 12.6 RATIO (10-20); Chloride 110 mmol/L (98-107); Cholesterol 197 mg/dL (200); Creatinine, Serum 1.59 mg/dL (0.70-1.30); EST Glomerular Filtration Rate 45 mL/min (>60); Est Glom Filt Rate - Afr Amer 55 mL/min (>60); Globulin 3.4 g/dL (2.2-4.2); Glucose 100 mg/dL (74-106); High Density Lipoprotein 61 mg/dL; PSA,Total- Diagnostic 3.25 ng/mL (0.0-4.0); Protein, Total 7.2 g/dL (6.4-8.2); Sodium Level 141 mmol/L (136-145); Triglycerides 77 mg/dL; Very Low Density Lipoprotein 15 mg/dL (5-40)
== END | disposition home or self-care (01) ==
LOC: LAB 09:46
PROVIDERS: PCP Family Medicine; Referring Provider Urology; Visit Provider Urology
DX: Z00.00 Encounter for general adult medical examination without abnormal findings (principal); C61 Malignant neoplasm of prostate; N18.30 Chronic kidney disease, stage 3 unspecified; I12.9 Hypertensive chronic kidney disease with stage 1 through stage 4 chronic kidney disease, or unspecified chronic kidney disease
CPT/HCPCS: 36415; 80053; 80061; 84153; 85025

== ENCOUNTER → 2024-08-06 | Outpatient (CLI) | payer MEDICARE, OTHER, SELFPAY ==
--- NOTE | 2024-08-06 13:15 | RAD_ITS ---
STUDY: X-RAY - LUMBAR SPINE REASON FOR EXAM: Male, 74 years old. LEFT SIDED LUMBAR PAIN TECHNIQUE: 4 view(s) of the lumbar spine were obtained. COMPARISON: None FINDINGS: Normal lumbar lordosis. Mild dextroscoliosis of the thoracic lumbar spine. There is a normal alignment of the vertebrae. There is multilevel endplate spondylosis of the lumbar vertebrae. There is multi-level degenerative disc disease with multi-level disc space narrowing. There is multilevel facet hypertrophy. The soft tissue structures are unremarkable. RAD/L/S Spine Min 4 Views IMPRESSION: Mild dextroscoliosis of the thoracic lumbar spine with degenerative disc disease. Electronically Signed: Mayank Petty MD at 14:14 EDT ,
== END | disposition home or self-care (01) ==
LOC: MTRAD 13:14
PROVIDERS: PCP Family Medicine; Referring Provider Family Medicine; Visit Provider Family Medicine
DX: M54.50 Low back pain, unspecified (principal)
CPT/HCPCS: 72110

== ENCOUNTER 2024-09-05 10:00 | Outpatient (RCR) | payer MEDICARE, OTHER, SELFPAY ==
--- NOTE | 2024-08-19 10:09 | HP.PTEVAL_ITS ---
Patient's Visit Information Visit Information Visit Information: ANATOLY SUAREZ is a 74 year old M referred to Physical Therapy by Dr. Amelia Cabrera MD with a diagnosis of Dorsalgia. Date of Evaluation: 08/19/24 Physical Therapist: Kurtis Vigil, DPT, OCS, CSCS Visit Plan Frequency: 2x /Week Duration: 4-6 Weeks Plan: 2x/week for 2-6 weeks(2 to start) for... IE: given trunk rotation, PPU and cat camel 10x each 3x/day and avoid aggravating activities Please progress to rollout adn stretch HS and quads, progress LB ROM and add core strength mat, progress function back to cross fit workout. STM and tens and Mh if pain returns Subjective Subjective: Getting better. here for LBP that started due to sledgehammer Monday, And concrete work on and then hard to move night. Monday was down and out. bent to put on sock 3 days later and was in agony. NOW [facility] gave steroids and muscle relaxers which did not help in two days and then to Ari who gave him antiinflammatories. Hurt it again 3 days later lifting leg to put on sock. lat 10 days has gotten better. Walked at meet Monday and had to rest L leg pain. back hurt a little. Today it feels pretty good. 80% better overall. is only on ibuprofen now. Sleep is easy on L side. Starting to be able to move in bed again. Not employed. Hobbies: i do stuff. Active, goes to [employer] prior to this and doing lifting and cardio. Pain L leg and back: Pain Intensity (Out of 10): 0 Pain Intensity Range: 0 and 5 Objective Objective: Walks into PT I without antalgia, trasnfer bed and chair I without e vidence of pain. Walks heels and toes easily. Marching and butt kicks without pain. Tightness obvious in danial dminimally and HS mod wiht - 25 90/90 test. - slump, - SLR. LB AROM ext mod limited, fleion slow and mod limited, carefull but not painful. L SB mod limited and painful L LB, R SB not limited. LE AROM WFL outside of tightnesses mentioned above. strength LE 5/5 knees and ankles, 4 on hip abd and ext, 4+ flexion, no pain. reflexes 2/3 patella and achilles B sensation WNL to gross light touch B LE. Balance/Special Test Scores Oswestry Low Back Score: 24 Goals Goal 1:: 100% improved pain and 0/10 for 5 days Goal Time Frame: 4-6 Weeks Goal 2:: I appropriate management and HEP to limit future problems Goal Time Frame: 4-6 Weeks Goal 3:: Back to crossfit workout without pain or limitations Goal Time Frame: 4-6 Weeks Goal 4:: oswestry score 5 or better Goal Time Frame: 4-6 Weeks Rehabilitation Potential Physical Therapy Diagnosis: Limited ROM and pain effecting comfortable function at home, likely discal in nature with h/o L3 problem subjectively. Rehabilitation Potential: Good Anticipated Interventions Patient/Client Instruction: Educate patient on: Condition and Risk Factors For the Purpose of:: To decrease pain, To increase ROM and To improve nutrient delivery to tissue Therapeutic Exercise to Include: Strength training, Flexibilty training, Passive ROM, Active ROM and Dynamic Lumbar Stabilization For the Purpose of:: To decrease pain, To increase ROM, To improve muscle performance and motor function and To improve gait and locomotor functions Manual Therapy Techniques to Include: Mobilization, Passive ROM and Soft tissue mobilization For the Purpose of:: To decrease pain, To increase ROM and To improve nutrient delivery to tissue TENS: Yes For the Purpose of:: To decrease pain, To increase ROM and To improve nutrient delivery to tissue Text: Thank you for the opportunity to evaluate your patient. For Medicare and Medicare HMO plans, please review the plan of care and approve it. It will need to be FAXED BACK to us at [phone] for Medicare purposes. For Medicare only, by signing this I certify the plan of care. Please let me know if there are questions or concerns regarding this plan of care. Physician Signature: Date:
--- NOTE | 2024-09-05 10:42 | HP.PTDCSUM ---
Discharge Summary D/C summary: It has been my pleasure to treat ANATOLY SUAREZ referred by Dr. Amelia Cabrera MD, with the diagnosis of Dorsalgia for a total of 5 visit(s). Discharge Date: 09/05/24 Please see the following information for a summary of their discharge status. Subjective Subjective: Getting better. Less pain. More mobile. Pain this week to 2/10 intermittently and still worse with standing. Walking much better. Sitting is comfortable. 93% better. Will get back to crossfit next week. No f/u with Dr Reba Haynes leg and back: Pain Intensity (Out of 10): 3 Overall Improvement % Improvement: 93 Objective Objective/Function: Good ROM of LB without increased pain today. Walking normal and transitions are normal today. Feeling good and ready to be on his own. Goals Goal 1:: 100% improved pain and 0/10 for 5 days Goal Progress: 93% Goal 2:: I appropriate management and HEP to limit future problems Goal Progress: Goal Met Goal 3:: Back to crossfit workout without pain or limitations Goal Progress: next week Goal 4:: oswestry score 5 or better Goal Progress: Goal Met Plan Plan: d/c to HEP D/C Information d/c sentence: If there are questions or concerns regarding this patient's physical therapy, please feel free to call me at [phone]. Thank you for the referral of this patient. Sincerely, Kurtis Vigil, DPT, OCS, CSCS Balance/Gait/Functional tests Balance/Special Test Scores Oswestry Low Back Score: 3 Improvement % Improvement: 93
== END 2024-09-05 19:00 | disposition home or self-care (01) ==
LOC: PT 10:00
PROVIDERS: PCP Family Medicine; Referring Provider Family Medicine; Visit Provider Family Medicine
DX: M54.9 Dorsalgia, unspecified (principal)
CPT/HCPCS: 97110; 97161

== ENCOUNTER → 2025-02-28 | Outpatient (CLI) | payer MEDICARE, OTHER, SELFPAY ==
[2025-02-28 12:15] LABS: Absolute Lymphocyte Count 1.51 X10^3/uL (0.83-4.51); Absolute Neutrophil Count 4.5 X10^3/uL (2.0-7.7); Basophil# 0.04 X10^3/uL; Basophil% 0.6 % (0-1); Eosinophils% 4.3 % (0-5); Hematocrit 42.4 % (40-54); Hemoglobin 14.5 g/dL (13.0-16.5); Lymphocyte # 1.51 X10^3/ul (0.83-4.51); Lymphocyte % 21.5 % (19-41); Mean Corp Hgb Conc 34.2 g/dL (32-36); Mean Corpuscular Hgb 30.1 pg (27.0-32.0); Mean Corpuscular Volume 88.1 fL (80-94); Mean Platelet Vol. 11.1 fl (6.2-12.0); Monocyte# 0.64 X10^3/uL; Monocyte% 9.1 % (0-10); NRBC Flagged by Analyzer 0 % (0-5); Neutrophil % 64.2 % (47-70); Platelet Count 219 K/mm3 (150-450); RBC Distribution Width CV 12.8 % (11.6-14.6); RBC Distribution Width SD 41.7 fl (35.1-43.9); Red Blood Count 4.81 M/mm3 (4.6-6.2)
[2025-02-28 13:36] LABS: ALB/GLOB Ratio 1.6 RATIO (0.9-2.4); AST(SGOT) 27 U/L (<=37); Alanine Aminotransfer ALT/SGPT 33 U/L (<=46); Albumin, Serum 4.4 g/dL (3.4-4.8); Alkaline Phosphatase 72 U/L (40-129); Anion Gap 12 (5-15); BUN 27 mg/dL (4-19); BUN/Creat Ratio 17.8 RATIO (10-20); Calcium,Total 9.4 mg/dL (7.6-11.0); Carbon Dioxide 20.9 mmol/L (21.0-32.0); Chloride 106 mmol/L (98-108); Cholesterol 201 mg/dL (<=200); Creatinine, Serum 1.49 mg/dL (0.70-1.20); EST Glomerular Filtration Rate 48 (>60); Globulin 2.8 g/dL (2.2-4.2); Glucose 100 mg/dL (70-99); High Density Lipoprotein 58 mg/dL; Low Density Lipoprotein Calc. 129 mg/dL; PSA,Total- Diagnostic 3.01 ng/mL (0.00-4.00); Potassium 4.7 mmol/L (3.3-5.1); Protein, Total 7.2 g/dL (5.9-8.4); Sodium Level 140 mmol/L (133-145); Total Bilirubin 0.51 mg/dL (0.00-1.30); Triglycerides 70 mg/dL; Very Low Density Lipoprotein 14 mg/dL (5-40); cholesterol:hdl ratio screen 3.47
== END | disposition home or self-care (01) ==
PROVIDERS: PCP Family Medicine; Visit Provider Family Medicine
DX: Z00.00 Encounter for general adult medical examination without abnormal findings (principal); C61 Malignant neoplasm of prostate; N18.30 Chronic kidney disease, stage 3 unspecified; I12.9 Hypertensive chronic kidney disease with stage 1 through stage 4 chronic kidney disease, or unspecified chronic kidney disease
CPT/HCPCS: 36415; 80053; 80061; 84153; 85025